=== PATIENT | female | born 1995 | race Caucasian/White ===

== ENCOUNTER 2021-01-30 16:34 | Emergency (ER) | payer OTHER, SELFPAY ==
[2021-01-30 16:36] VITALS: PULSE 75; RESP 20; TEMP 36.4; O2SAT 98
--- NOTE | 2021-01-30 16:38 | DI.RAD.S_ITS ---
PROCEDURE: XR TOE LT MIN 2V INDICATIONS: dropped cutting board on toe TECHNIQUE: 3 views of the 1st toe(s) acquired. COMPARISON: None. FINDINGS: Bones: No fractures or dislocations. No suspicious bony lesions. Soft tissues: No suspicious soft tissue densities. IMPRESSION: No acute osseous abnormality. Dictated by: Virgilio Valdes M.D. on 01/30/2021 at 16:55 Approved by: Virgilio Valdes M.D. on 01/30/2021 at 16:56
--- NOTE | 2021-01-30 17:20 | ED_ITS ---
HPI - Extremity Injury (Lower) General Chief Complaint: Extremity Injury, Lower Stated Complaint: LEFT BIG TOE INJURY Time Seen by Provider: 01/30/21 17:11 Source: patient Mode of arrival: Ambulatory History of Present Illness HPI Narrative: Patient is a 25-year-old female who is here for evaluation of a left big toe injury. She states that she dropped a cutting board on her toe a couple days ago. Since that time she has had discomfort with walking. No prior injury. Review of Systems Musculoskeletal Comments: Left big toe pain Integumentary/Breasts Comments: Bruising under the left big toenail Neurologic Neurologic: Reports system reviewed and no additional complaints, except as documented Hematologic/Lymphatic On Anticoagulants: No Patient History Medical History Healthy adult Social History Smoking Status: Current every day smoker Smoking Status: Current every day smoker Exam Initial Vital Signs Initial Vital Signs: Vital Signs Temperature 97.5 F L 01/30/21 16:36 Pulse Rate 75 01/30/21 16:36 Respiratory Rate 20 01/30/21 16:36 Pulse Oximetry 98 01/30/21 16:36 Const General: cooperative and comfortable Cardio Pulses: dorsalis pedis present on the left Skin General: no rashes or lesions noted Neuro General: patient alert and patient awake Sensory Exam: no sensory deficits noted Extrem Other: Patient does have a left great toe subungual hematoma. In tenderness to palpation over this area. Procedures Nail Trephination Time out: Yes Location (toes): first digit Method of drainage: needle Procedure successful: Yes Patient tolerated procedure: well and no complications Course Orders Ordered: ED Orders 01/30/21 16:38 XR toe LT min 2V Stat Vital Signs Vital signs: Vital Signs - 8 hr 01/30/21 16:36 Temperature 97.5 F L Pulse Rate 75 Respiratory Rate 20 Pulse Oximetry 98 MDM - Extremity Injury (Lower) Imaging Data Extremity x-ray #1: Radiologist's Impression: [address] [address] XRay Report Signed Patient: Kassie Alfaro MR#: [id number] : 1995 Acct:[id number] Age/Sex: 25 / F Date of Service: 01/30/21 Loc: ED Accession Number: [id number] ?? Procedure: XR toe LT min 2V Ordering Provider: Maikel Valle D.O. PROCEDURE:? XR TOE LT MIN 2V ? INDICATIONS:? dropped cutting board on toe ? TECHNIQUE:? 3 views of the 1st toe(s) acquired.? ? COMPARISON:? None. ? FINDINGS:? ? Bones:? No fractures or dislocations.? No suspicious bony lesions.? ? Soft tissues:? No suspicious soft tissue densities.? ? IMPRESSION:? No acute osseous abnormality. ? ? Dictated by: Virgilio Valdes M.D. on 01/30/2021 at 16:55 ? ? Approved by: Virgilio Valdes M.D. on 01/30/2021 at 16:56 MDM Narrative Medical decision making narrative: X-ray did not show any signs of a fracture. She is neurovascularly intact. She does have a left great toe subungual hematoma which was drained here in the ER. She was told that she could potentially lose this toenail because of this. She was given care instructions return precautions. She expressed understanding and agreement. Discharge Plan Departure Patient Disposition: Home Clinical Impression: Subungual hematoma of great toe of left foot Instructions: DI for Subungual Hematoma Activity Restrictions/Additional Instructions: You can walk like normal. Expect some drainage from the small hole that we made in the toenail. There is a good chance that your going to lose your toenail because of this injury. You can take Tylenol/ibuprofen for any discomfort. Return to the emergency department for any new or worsening symptoms
== END 2021-01-30 17:34 | disposition home or self-care (01) ==
PROVIDERS: Emergency Provider Emergency Medicine
DX: S90.212A Contusion of left great toe with damage to nail, initial encounter (principal); W22.8XXA Striking against or struck by other objects, initial encounter
CPT/HCPCS: 11730; 73660; 99283

== ENCOUNTER → 2021-07-25 15:18 | Outpatient (CLI) | payer OTHER, SELFPAY ==
[2021-07-25 15:54] LABS: Add Manual Diff / Slide Review NO; Basophils Absolute Auto 0 /uL (0-100); Basophils Percent Auto 0.3 % (0-2); Eosinophils Absolute Auto 100 /uL (0-450); Eosinophils Percent Auto 0.9 % (2-4); Hematocrit 38.9 % (36-46); Hemoglobin 13.5 g/dL (12.0-16.0); Lymphocytes Absolute Auto 1600 /uL (1100-4500); Lymphocytes Percent Auto 16.1 % (25-40); Mean Corpuscular HGB Conc 34.6 % (30-36); Mean Corpuscular Hemoglobin 28.5 PG (26-34); Mean Corpuscular Volume 82.6 fL (80-100); Monocytes Absolute Auto 600 /uL (0-900); Monocytes Percent Auto 5.9 % (3-14); Neutrophils Absolute Auto 7500 /uL (1500-7000); Neutrophils Percent Auto 76.8 % (50-75); Platelet Count 255 X10^3/uL (150-400); Red Blood Cell Count 4.72 X10^6/uL (4.0-5.2); Red Cell Distribution Width 13.1 % (11.6-14.8); White Blood Cell Count 9.7 X10^3/uL (4.5-11.0)
[2021-07-25 16:24] LABS: Appearance Urine UA CLEAR; Bilirubin Urine UA NEGATIVE (NEGATIVE); Color Urine UA YELLOW; Glucose Urine UA 1+ g/dL (Negative); Ketones Urine UA 1+ (NEGATIVE); Leukocyte Esterase Urine UA NEGATIVE (NEGATIVE); Nitrite Urine UA NEGATIVE (Negative); Occult Blood Urine UA TRACE-INTACT (Negative); Protein Urine UA TRACE (Negative); Specific Gravity Urine UA >=1.030 (1.000-1.035); Urobilinogen Urine UA 0.2 E.U./dL (0.2)
[2021-07-25 17:02] LABS: Hepatitis B Surface Antigen NEGATIVE s/c (NEGATIVE); Rubella Antibody IgG 12.7 IU/mL (>15)
[2021-07-25 17:22] LABS: HIV 1 & 2 Ab/Ag 4th Gen Combo NEGATIVE (NEGATIVE); Hep C Virus Ab w/Reflex Quant NEGATIVE s/c (NEGATIVE)
[2021-07-26 10:51] LABS: RPR Screen Non Reactive (Non Reactive); Varicella IgG Antibody <135 index (Immune >165)
== END ==
PROVIDERS: Referring Provider Family Medicine; Visit Provider Family Medicine
DX: Z34.00 Encounter for supervision of normal first pregnancy, unspecified trimester (principal)
CPT/HCPCS: 36415; 80055; 81003; 86787; 86803; 86850; 86900; 86901; 87086; 87389

== ENCOUNTER → 2021-09-27 12:05 | Outpatient (CLI) | payer OTHER, SELFPAY ==
--- NOTE | 2021-09-27 12:07 | DI.US.S_ITS ---
PROCEDURE: US OB >= 14 WEEKS FETUS INDICATIONS: ANATOMY SCAN OUTSIDE/PRIOR DATING DATA: Last menstrual period (LMP): 05/08/2021. LMP-based estimated date of delivery (YELENA): 02/12/2022. First dating scan (date and location): 09/27/2021. Estimated date of delivery (YELENA) from first dating scan: 02/19/2022. The calculations are made using the ultrasound YELENA of 02/19/2022. TECHNIQUE: Real-time scanning was performed of the fetus, with image documentation and biometric measurements. COMPARISON: None. FINDINGS: General: A single living intrauterine gestation is present. Presentation: Breech Placenta: Placental position is anterior, without previa. Amniotic fluid index: 6.9 cm. Largest pocket 1.9 cm. heart rate: 145 beats per minute. Maternal cervical canal: 5.4 cm long. Normal lower limit is 2.5 cm. biometrics: Biparietal diameter: 19 weeks Head circumference: 19 weeks 5 days Abdominal circumference: 18 weeks 6 days Femur length: 19 weeks 3 days Clinically estimated gestational age: 20 weeks 2 days Composite gestational age from present scan: 19 weeks 2 days Estimated weight and percentile: 277 g Limited anatomic survey. IMPRESSION: 1. Single living IUP with composite gestational age of 19 weeks 2 days corresponding to ultrasound YELENA of 02/19/2022 2. Limited anatomic survey. Follow-up recommended. 3. Amniotic fluid index less than the 5th percentile for age. Follow-up OB ultrasound recommended. We strive to produce accurate, complete, and clear reports of imaging services. To assist us in improving patient care, this report was composed using standard report templates and voice recognition software. Therefore, it may contain abnormal punctuation, insertions and/or omissions. Occasional wrong-word or sound-alike substitutions may occur. Though we review the report and make efforts to correct it, we do recommend that the report be read carefully in proper context to recognize any text inaccuracies. Dictated by: Erik HINOJOSA Interpreted: Virgilio Valdes MD on 09/28/2021 at 13:16 Transcribed by: ALANIS on 09/28/2021 at 13:22 Approved by: Virgilio Valdes M.D. on 09/28/2021 at 15:21
== END ==
PROVIDERS: Referring Provider Family Medicine; Visit Provider Family Medicine
DX: Z36.89 Encounter for other specified antenatal screening (principal); Z3A.19 19 weeks gestation of pregnancy
CPT/HCPCS: 76811

== ENCOUNTER → 2021-10-06 15:16 | Outpatient (CLI) | payer OTHER, SELFPAY ==
[2021-10-09 12:36] LABS: AFP, Serum 124.9 ng/mL (.); Calc Gestational Age Ultrasound (.); Estriol, Free 2.72 ng/mL (.); Inhibin A, Dimeric 109.38 pg/mL (.); Inhibin A, MoM 0.68 (.); Maternal Ethnicity Caucasian (.); Maternal Weight 240 lbs (.); Number of Fetuses No (.); OSBR Risk 1 IN 356 (.); Results Report (.); Test Results *Screen Negative* (.); hCG, MoM 0.85 (.); hCG, Serum 15857 mIU/mL (.)
== END ==
PROVIDERS: PCP Family Medicine; Referring Provider Family Medicine; Visit Provider Family Medicine
DX: Z34.92 Encounter for supervision of normal pregnancy, unspecified, second trimester (principal); Z3A.19 19 weeks gestation of pregnancy
CPT/HCPCS: 36415; 82105; 82677; 84702; 86336

== ENCOUNTER → 2021-10-13 14:02 | Outpatient (CLI) | payer OTHER, SELFPAY ==
--- NOTE | 2021-10-13 14:04 | DI.US.S_ITS ---
PROCEDURE: US OB FOLLOW UP INDICATIONS: PAT; RE-EVALUATE ANATOMY OUTSIDE/PRIOR DATING DATA: Last menstrual period (LMP): 05/08/2021 LMP-based estimated date of delivery (YELENA): 02/12/2022 First dating scan (date and location): 09/27/2021 Estimated date of delivery (YELENA) from first dating scan: 02/19/2022 The calculations are made using the ultrasound YELENA of 02/19/2022 TECHNIQUE: Real-time scanning was performed of the fetus, with image documentation. Endovaginal scanning: Not performed. COMPARISON: [facility], , OB >= 14 WEEKS FETUS, 09/27/2021, 12:47. FINDINGS: General: A single living intrauterine gestation is present. Presentation: Vertex Placenta: Placental position is anterior, without previa. Amniotic fluid index: 12.8 cm, normal range is 5-24 cm. Single deepest vertical pocket is 4.7 cm. heart rate: 137 beats per minute. Maternal cervical canal: 3.6 cm long. Normal lower limit is 2.5 cm. Clinically estimated gestational age: 21 weeks 4 days Other: ventricles, posterior fossa, nuchal fold, face/orbits, nose/lips, facial profile, spine, kidneys, and feet appear normal a period placental cord insertion appears normal. IMPRESSION: 1. Single live intrauterine . 2. Amniotic fluid index is within normal limits measuring 12.8 cm. 3. anatomic survey within normal limits. We strive to produce accurate, complete, and clear reports of imaging services. To assist us in improving patient care, this report was composed using standard report templates and voice recognition software. Therefore, it may contain abnormal punctuation, insertions and/or omissions. Occasional wrong-word or sound-alike substitutions may occur. Though we review the report and make efforts to correct it, we do recommend that the report be read carefully in proper context to recognize any text inaccuracies. Dictated by: Burton Akins M.D. on 10/13/2021 at 15:10 Approved by: Burton Akins M.D. on 10/13/2021 at 15:24
== END ==
PROVIDERS: PCP Family Medicine; Referring Provider Family Medicine; Visit Provider Family Medicine
DX: O41.02X0 Oligohydramnios, second trimester, not applicable or unspecified (principal); Z36.2 Encounter for other antenatal screening follow-up; Z3A.21 21 weeks gestation of pregnancy
CPT/HCPCS: 76816

== ENCOUNTER → 2021-11-17 16:36 | Outpatient (CLI) | payer OTHER, SELFPAY ==
[2021-11-17 17:59] LABS: Hematocrit 35.6 % (36-46); Hemoglobin 12.1 g/dL (12.0-16.0)
[2021-11-17 18:14] LABS: GTT (PREG) 1 Hour PP 50gm Dose 158 mg/dL (76-139)
== END ==
PROVIDERS: PCP Family Medicine; Referring Provider Obstetrics & Gynecology; Visit Provider Obstetrics & Gynecology
DX: Z34.02 Encounter for supervision of normal first pregnancy, second trimester (principal); Z3A.26 26 weeks gestation of pregnancy
CPT/HCPCS: 36415; 82950; 85014; 85018

== ENCOUNTER → 2021-12-05 08:08 | Outpatient (CLI) | payer OTHER, SELFPAY ==
[2021-12-05 10:25] LABS: Glucose Fasting Gestational 66 mg/dL (76-95)
[2021-12-05 10:25] LABS: Glucose 1 Hour Gest 117 mg/dL (76-180)
[2021-12-05 12:01] LABS: Glucose Tol Interp,Gestational INTERPRETATION
[2021-12-05 12:02] LABS: Glucose 2 Hour Gest 134 mg/dL (76-155)
[2021-12-05 13:18] LABS: Glucose 3 Hour Gest 108 mg/dL (76-140)
== END ==
PROVIDERS: PCP Family Medicine; Referring Provider Family Medicine; Visit Provider Family Medicine
DX: R73.9 Hyperglycemia, unspecified (principal)
CPT/HCPCS: 36415; 82951; 82952

== ENCOUNTER 2021-12-12 16:30 | Observation (INO) | payer OTHER, SELFPAY ==
--- NOTE | 2021-12-12 17:19 | DI.US.S_ITS ---
PROCEDURE: US ABDOMEN LIMITED INDICATIONS: RUQ pain TECHNIQUE: Real-time focused scanning was performed of the abdomen, with image documentation. COMPARISON: None. FINDINGS: The liver demonstrates enlarged size. The liver demonstrates generalized moderately increased echogenicity. This decreases ultrasound sensitivity for detection of hepatic masses. The gallbladder is contracted, which limits its evaluation. No findings of gallstones or sludge are seen. The gallbladder wall is not thickened, measuring 3 mm or less. No specific pericholecystic fluid is seen. The sonographic [place] sign is negative. There is no biliary dilatation, the common bile duct measures 4 mm. The pancreas is not well seen. This is a limited study, secondary to patient body habitus and . The measured heart rate is 143 beats per minute. IMPRESSION: Limited study demonstrating a contracted gallbladder, without biliary dilatation. The liver demonstrates increased echogenicity. This finding is nonspecific, yet it is most commonly attributed to fatty infiltration. Dictated by: Franklyn Salamanca M.D. on 12/12/2021 at 18:01 Approved by: Franklyn Salamanca M.D. on 12/12/2021 at 18:03
[2021-12-12 18:30] LABS: Add Manual Diff / Slide Review NO; Basophils Absolute Auto 0 /uL (0-100); Basophils Percent Auto 0.2 % (0-2); Eosinophils Absolute Auto 100 /uL (0-450); Eosinophils Percent Auto 0.8 % (2-4); Hematocrit 32.3 % (36-46); Hemoglobin 11.1 g/dL (12.0-16.0); Lymphocytes Absolute Auto 1900 /uL (1100-4500); Lymphocytes Percent Auto 16.9 % (25-40); Mean Corpuscular HGB Conc 34.3 % (30-36); Mean Corpuscular Hemoglobin 27.8 PG (26-34); Mean Corpuscular Volume 81.1 fL (80-100); Monocytes Absolute Auto 800 /uL (0-900); Monocytes Percent Auto 6.7 % (3-14); Neutrophils Absolute Auto 8700 /uL (1500-7000); Neutrophils Percent Auto 75.4 % (50-75); Platelet Count 226 X10^3/uL (150-400); Red Blood Cell Count 3.98 X10^6/uL (4.0-5.2); Red Cell Distribution Width 13.7 % (11.6-14.8); White Blood Cell Count 11.5 X10^3/uL (4.5-11.0)
[2021-12-12 18:54] LABS: Alanine Aminotransferase 15 IU/L (<35); Albumin 3.1 g/dL (3.5-5.0); Albumin Globulin Ratio 1.1 (1.0-2.8); Alkaline Phosphatase 81 U/L (38-126); Aspartate Aminotransferase 23 IU/L (14-36); Bilirubin Total 0.2 mg/dL (0.2-1.3); Blood Urea Nitrogen 7 mg/dL (7-17); Calcium 8.5 mg/dL (8.4-10.2); Carbon Dioxide 25 mmol/L (22-32); Chloride 104 mmol/L (98-107); Estimated Glomerular Filt Rate > 60 mL/min (>60); Globulin 2.7 g/dL (1.7-4.1); Glucose 92 mg/dL (70-100); HEMOLYSIS < 15 (0-50); Potassium 3.4 mmol/L (3.4-5.1); Sodium 136 mmol/L (137-145); Total Protein 5.8 g/dL (6.3-8.2)
[2021-12-12 19:12] LABS: Appearance Urine UA CLEAR; Bilirubin Urine UA NEGATIVE (NEGATIVE); Color Urine UA YELLOW; Glucose Urine UA NEGATIVE (Negative); Ketones Urine UA NEGATIVE (NEGATIVE); Leukocyte Esterase Urine UA 2+ (NEGATIVE); Nitrite Urine UA NEGATIVE (Negative); Occult Blood Urine UA NEGATIVE (Negative); Protein Urine UA NEGATIVE (Negative); Specific Gravity Urine UA <=1.005 (1.000-1.035); Urobilinogen Urine UA 0.2 E.U./dL (0.2)
[2021-12-12 19:24] LABS: Amorphous Sediment Urine 1+; Bacteria Urine Occasional (0-1); Culture Indicated Urine Specimen Cultured; RBC Urine None Seen (0-5/HPF); Squamous Epithelial Cell Urine 1-5 /HPF (0-5/HPF); WBC Urine 1-5/HPF (0-5/HPF)
== END 2021-12-12 19:35 | disposition home or self-care (01) ==
LOC: LABOR 16:35
PROVIDERS: Obstetrics & Gynecology; Admitting Provider Family Medicine; PCP Family Medicine; Referring Provider Family Medicine; Visit Provider Family Medicine
DX: O26.893 Other specified pregnancy related conditions, third trimester (principal); R10.11 Right upper quadrant pain; Z3A.31 31 weeks gestation of pregnancy
CPT/HCPCS: 36415; 59025; 76705; 80053; 81003; 81015; 85025; 87086; G0378; G0379

== ENCOUNTER → 2022-01-19 13:47 | Outpatient (CLI) | payer OTHER, SELFPAY ==
[2022-01-20 08:51] LABS: Strep Grp B PCR POS for Grp B Strep
== END ==
PROVIDERS: PCP Family Medicine; Visit Provider Family Medicine
DX: Z34.93 Encounter for supervision of normal pregnancy, unspecified, third trimester (principal); Z3A.36 36 weeks gestation of pregnancy
CPT/HCPCS: 87653

== ENCOUNTER 2022-02-12 11:40 | Outpatient (CLI) | payer OTHER, SELFPAY ==
[2022-02-12 12:08] LABS: Add Manual Diff / Slide Review NO; Basophils Absolute Auto 100 /uL (0-100); Basophils Percent Auto 0.8 % (0-2); Eosinophils Absolute Auto 0 /uL (0-450); Eosinophils Percent Auto 0.4 % (2-4); Hemoglobin 10.9 g/dL (12.0-16.0); Lymphocytes Absolute Auto 1500 /uL (1100-4500); Mean Corpuscular HGB Conc 32.8 % (30-36); Mean Corpuscular Hemoglobin 25.7 PG (26-34); Mean Corpuscular Volume 78.3 fL (80-100); Monocytes Absolute Auto 600 /uL (0-900); Monocytes Percent Auto 4.9 % (3-14); Neutrophils Absolute Auto 9200 /uL (1500-7000); Neutrophils Percent Auto 80.9 % (50-75); Platelet Count 209 X10^3/uL (150-400); Red Blood Cell Count 4.22 X10^6/uL (4.0-5.2); Red Cell Distribution Width 13.9 % (11.6-14.8); White Blood Cell Count 11.3 X10^3/uL (4.5-11.0)
[2022-02-12 12:20] LABS: Aspartate Aminotransferase 21 IU/L (14-36); BUN Creatinine Ratio 7.5 (6-22); Blood Urea Nitrogen 4 mg/dL (7-17); Estimated Glomerular Filt Rate > 60 mL/min (>60); Uric Acid 4.3 mg/dL (2.5-6.2)
--- NOTE | 2022-02-12 12:55 | PM.OBTRLD ---
Visit Information Visit Information Date of evaluation: 02/12/22 Primary OB Provider: Elena Boo Reason for Evaluation: Yes non-stress test non-stress test reason: hypertension/pre-eclampsia Comments/Additional reasons for admission: 27 year old at 40 weeks gestation sent from clinic due to elevated BP. She is without CABAN, vision changes, RUQ pain. Notes some edema which is new. Vital Signs Vital Signs: Temperature 35.7? blood pressure 143/73 heart rate 95 149/79 96 126/63 93 129/74 103 127/70 97 128/69 90 [facility] Medical History Anxiety (~2020) Back pain Depression (~2020) Frequent headaches (~2019) Healthy adult Migraines (~2020) Mild acid reflux Shoulder pain (~2020) Wears glasses Surgical History History of wisdom tooth extraction Family History Mother History of Father Mental health problem Substance abuse Grandfather Diabetes mellitus Social History marital status: number of children: 0 household members: spouse and friend(s) lives independently: Yes housing: house pets and animals: No education level: college occupational status: employed ([employer]) current occupational exposures/hazards: Yes (will need note to be out of that area) special zaida needs: No seatbelt use: always water heater temp set < 120 deg: Yes working smoke detector in home: Yes fire extinguisher in home: Yes carbon monox detector in home: Yes firearms in home: Yes firearms unloaded and locked: Yes do you feel safe at home: Yes Smoking Status: Former smoker second hand exposure: No alcohol intake: former substance use type: does not use during the past year weight has: increased > 10 lbs (gained 30 pounds in last year, was not eating well and had back injury) well-balanced diet: rarely or never daily servings fruits/ve-1 caffeine: Yes (aware of limit) Type(s) of exercise: none Objective Labs Result Diagrams: 02/12/22 12:00 02/12/22 12:00 Labs: Laboratory Results - last 24 hr 02/12/22 02/12/22 12:00 12:00 WBC 11.3 H RBC 4.22 Hgb 10.9 L Hct 33.0 L MCV 78.3 L MCH 25.7 L MCHC 32.8 RDW 13.9 Plt Count 209 Neut % (Auto) 80.9 H Lymph % (Auto) 13.0 L [place] % (Auto) 4.9 Eos % (Auto) 0.4 L Baso % (Auto) 0.8 Neut # (Auto) 9200 H Lymph # (Auto) 1500 [place] # (Auto) 600 Eos # (Auto) 0 Baso # (Auto) 100 BUN 4 L Creatinine 0.53 Estimated GFR > 60 BUN/Creatinine Ratio 7.5 Uric Acid 4.3 AST 21 Evaluation Evaluation Baseline heart rate: 130 Variability: Moderate (11-25) monitor accelerations: Present Monitor Decelerations: Absent Category of Tracing: Reactive Diagnosis, Plan/Disposition Final Diagnosis (1) 40 weeks gestation of : Status: Acute Plan/Disposition Plan: 27 year old at 40 weeks gestation. BP initially elevated though came down spontaneously. She is without sx of pre-eclampsia. Labs normal. Will discharge home. Return in 4 days for induction. OB Disposition: home
[2022-02-12 13:01] LABS: Creatinine Urine Random 51.1 mg/dL; Protein (Total) Urine Random 18 mg/dL (0-12); Protein Creatinine Ratio Urine 0.35 GRAM/24H
== END 2022-02-12 13:05 | disposition home or self-care (01) ==
LOC: OB 02-20 14:11
PROVIDERS: PCP Family Medicine; Referring Provider Family Medicine; Visit Provider Family Medicine
DX: O48.0 Post-term pregnancy (principal); O12.03 Gestational edema, third trimester; O26.893 Other specified pregnancy related conditions, third trimester; R03.0 Elevated blood-pressure reading, without diagnosis of hypertension; Z3A.40 40 weeks gestation of pregnancy
CPT/HCPCS: 59025; 59050; 82570; 84156; 84450; 84550; 85025; G0378; G0379

== ENCOUNTER 2022-02-15 19:30 | Inpatient (IN) | payer OTHER, SELFPAY ==
[2022-02-15 20:12] VITALS: BP 127/77
[2022-02-15] MEDS: LACTATED RINGERS 1,000 ML 999 ML IV (20:29)
[2022-02-15 20:37] LABS: Add Manual Diff / Slide Review NO; Basophils Absolute Auto 100 /uL (0-100); Eosinophils Absolute Auto 100 /uL (0-450); Eosinophils Percent Auto 0.5 % (2-4); Hematocrit 33.4 % (36-46); Hemoglobin 10.9 g/dL (12.0-16.0); Lymphocytes Absolute Auto 1800 /uL (1100-4500); Lymphocytes Percent Auto 13.6 % (25-40); Mean Corpuscular HGB Conc 32.7 % (30-36); Mean Corpuscular Volume 79.6 fL (80-100); Monocytes Absolute Auto 900 /uL (0-900); Monocytes Percent Auto 6.9 % (3-14); Neutrophils Absolute Auto 10100 /uL (1500-7000); Platelet Count 252 X10^3/uL (150-400); Red Blood Cell Count 4.19 X10^6/uL (4.0-5.2); Red Cell Distribution Width 14.3 % (11.6-14.8)
[2022-02-15] MEDS: DINOPROSTONE VAG (CERVIDIL) 10 MG VAG (21:28)
[2022-02-15] MEDS: ZOLPIDEM 5 MG TABLET PO (21:38)
[2022-02-15] MEDS: CALCIUM CARBONATE 500 MG TAB 1000 MG PO (21:41)
[2022-02-15 22:46] LABS: COVID19 -Nasal RAPID Negative (Negative)
[2022-02-16] MEDS: ACETAMINOPHEN 325 MG TABLET 650 MG PO (06:19)
--- NOTE | 2022-02-16 08:28 | PM.OBHP.IH.1 ---
OB HPI Date/Time Date of admission: 02/16/22 History of Present Condition Chief complaint: nst YELENA Calculator Estimated Delivery Date Method Current WG Current Estimate 02/12/22 LMP (Uncertain) 40w 4d Other Estimates 02/17/22 Ultrasound #1 39w 6d : 1 Para: 0 Narrative: 27-year-old at 40 weeks and 4 days here for post-dates induction. She received Cervidil overnight and slept little due to cramping and back pain. Denies leaking or bleeding. Baby has been active. She is interested in an epidural eventually. care: good care, initiated at week # (11), number of visits (13) and pounds weight gain (49) Dating criteria OB: LMP confirmed by 1st trimester US Ultrasounds: normal mid trimester US Preadmission Labs Last OB Lab Results: Blood Type O Positive 02/15/22 20: Antibody Screen Negative 02/15/22 20:23 Hematocrit 33.4 % (36-46) L 02/15/22 20:23 Hemoglobin 10.9 g/dL (12.0-16.0) L 02/15/22 20:23 Hepatitis B Surface Antigen Negative s/c (NEGATIVE) 07/25/21 15:22 Hepatitis C Antibody Negative s/c (NEGATIVE) 07/25/21 15:22 Rubella Antibody 12.7 IU/mL (>15) L 07/25/21 15:22 Varicella-Zoster IgG Antibody <135 index (Immune >165) L 07/25/21 15:22 Glucose 1 Hour 158 mg/dL (76-139) H 11/17/21 16:42 Group B Streptococcus (PCR) Pos for grp b strep H 01/19/22 13:47 Evaluation Evaluation Baseline heart rate: 130 Variability: Moderate (11-25) monitor accelerations: Present Monitor Decelerations: Absent Contraction Frequency (minutes): 4 Status: Category l Dilation (cm): 2.5 Effacement (%): 80 Dilation: 1-2 cm Effacement: >/=80% station: -1 Position of cervix: posterior Consistency: soft Rockwell score: 8 PFSH Medical History Anxiety (~2020) Back pain Depression (~2020) Frequent headaches (~2019) Healthy adult Migraines (~2020) Mild acid reflux Shoulder pain (~2020) Wears glasses Surgical History History of wisdom tooth extraction Family History Mother History of Father Mental health problem Substance abuse Grandfather Diabetes mellitus Social History marital status: number of children: 0 household members: spouse and friend(s) lives independently: Yes housing: house pets and animals: No education level: college occupational status: employed ([employer]) current occupational exposures/hazards: Yes (will need note to be out of that area) special zaida needs: No seatbelt use: always water heater temp set < 120 deg: Yes working smoke detector in home: Yes fire extinguisher in home: Yes carbon monox detector in home: Yes firearms in home: Yes firearms unloaded and locked: Yes do you feel safe at home: Yes Smoking Status: Former smoker second hand exposure: No alcohol intake: former substance use type: does not use during the past year weight has: increased > 10 lbs (gained 30 pounds in last year, was not eating well and had back injury) well-balanced diet: rarely or never daily servings fruits/ve-1 caffeine: Yes (aware of limit) Type(s) of exercise: none Meds Home Medications and Allergies Home Medications Medication Instructions Recorded Confirmed Type docusate sodium 100 mg capsule 100 mg PO DAILY 07/12/21 02/09/22 History (Colace) prenat.vits,usman,lxi-tdvh-pkfse 1 tab PO DAILY 07/12/21 02/09/22 History pyridoxine (vitamin B6) 100 mg 100 mg PO QID 07/12/21 02/09/22 History tablet Allergies Allergy/AdvReac Type Severity Reaction Status Date / Time No Known Drug Allergies Allergy Unverified 02/09/22 13:45 Review of Systems Review of Systems ROS: Yes All systems reviewed with the patient and are negative except as otherwise documented OB Exam Narrative Exam Narrative: Temperature 36.6? blood pressure 120/69 heart rate 93 HENMT Head: normal to inspection Mouth: oral mucosae normal Eyes General: appearance normal, both eyes and all related structures Resp Effort & Inspection: normal respiratory effort Auscultation: clear to auscultation bilaterally Cardio Rate: regular rate Rhythm: regular rhythm Extremities Lower extremity: Yes edema (Trace bilaterally) Presentation: vertex Estimated Weight (lbs): 8 Objective Labs Result Diagrams: 02/15/22 20:23 Labs: Laboratory Results - last 24 hr 02/15/22 02/15/22 02/15/22 20:00 20:23 20:23 WBC 13.0 H RBC 4.19 Hgb 10.9 L Hct 33.4 L MCV 79.6 L MCH 26.0 MCHC 32.7 RDW 14.3 Plt Count 252 Neut % (Auto) 78.0 H Lymph % (Auto) 13.6 L [place] % (Auto) 6.9 Eos % (Auto) 0.5 L Baso % (Auto) 1.0 Neut # (Auto) 98512 H Lymph # (Auto) 1800 [place] # (Auto) 900 Eos # (Auto) 100 Baso # (Auto) 100 SARS-CoV-2 (PCR) Negative Blood Type O Positive Antibody Screen Negative Assessment and Plan Assessment and Plan Assessment and Plan narrative: 27-year-old at 40 weeks and 4 days gestation status post Cervidil overnight. Cervix is favorable this morning with a Rockwell score of 8. She is GBS positive. Plan Patient may eat breakfast in shower then will start Pitocin per protocol Begin GBS prophylaxis upon active labor Anticipate
[2022-02-16] MEDS: FENT 2MCG/ML BUPIV 0.125% EPI 200 MCG/100 ML PLAST..BAG 8 MCG EPIDURAL ×2 (11:00→16:49)
[2022-02-16] MEDS: PENICILLIN G POTASSIUM 5,000,000 UNIT in DEXTROSE 5% IN WATER 250 ML 250 UNIT IV (11:43)
[2022-02-16] MEDS: LACTATED RINGERS 1,000 ML 1000 ML IV (11:44)
[2022-02-16] MEDS: OXYTOCIN PREMIX 30 UNIT/500 ML PLAST..BAG IV (13:41)
[2022-02-16] MEDS: PENICILLIN G POTASSIUM 3,000,000 UNIT/50 ML FROZ.PIGGY 100 UNIT IV ×2 (15:05→18:48)
--- NOTE | 2022-02-16 15:14 | PM.OBPNLAB ---
Date/Time Date Patient Seen: 02/16/22 Time Patient Seen: 15:14 Pain Control Pain control: tolerating well and epidural Comments: She can feel contractions but not painfully. Unsure if she ruptured. Pelvic Exam Dilation (cm): 9 Effacement (%): 100 station: 0 Amniotic membrane status: Ruptured Contractions Monitor mode: External Pitocin rate (mU/min): 2 Contraction frequency (min): 4 Status status: Category ll Heart Rate Baseline: 140 Monitor Accelerations: Present Monitor Decelerations: Early and Variable Monitor Variability: Moderate Assessment and Plan Assessment: active labor Plan: continuous present management Comments: 27 year old at 40+4 weeks undergoing induction. Progressing well with minimal pitocin. Unknown ROM but suspect sometime in the last two hours. There are intermittent variable and early decelerations with good return to baseline and moderate variability. Will recheck SVE in one hour or when patient feeling rectal pressure. Anticipate .
--- NOTE | 2022-02-16 16:40 | PM.AN.REGBLK ---
Regional Block Pre-procedure PMH/ROS narrative: at 40+4 for post dates induction. no complications. ASA Class: III (BMI 42) Labs: Hct 33.4 % (36-46) L 02/15/22 20:23 Plt Count 252 X10^3/uL (150-400) 02/15/22 20:23 Medications: Current Medications Generic Name Dose Route Start Last Admin Trade Name Freq PRN Reason Stop Dose Admin Acetaminophen 650 mg 02/16/22 05:50 02/16/22 06:19 Acetaminophen 325 Mg Tablet PO 650 mg Q4H PRN Administration Fever/Mild Pain (1-3) Calcium Carbonate 1,000 mg 02/15/22 19:37 02/15/22 21:41 Calcium Carbonate 500 Mg Tab PO 1,000 mg Q2HR PRN Administration Dyspepsia Carboprost Tromethamine 250 mcg 02/15/22 19:37 Carboprost 250 Mcg/Ml Ampul IM Q90M PRN Bleeding Diphenhydramine HCl 25 mg 02/16/22 10:56 Diphenhydramine 50 Mg/Ml Vial IV Q10M PRN Pruritis Ephedrine Sulfate 5 mg 02/16/22 10:56 Ephedrine 50 Mg/Ml Vial IV Q5M PRN Blood pressure decrease more than 20% of baseline. Fentanyl 50 mcg 02/15/22 19:37 Fentanyl 100 Mcg/2 Ml Inj IV Q1H PRN Pain, Moderate (4-6) Lactated Ringer's 1,000 mls @ 100 mls/hr 02/15/22 19:45 02/15/22 20:29 Lactated Ringers IV 999 mls/hr CONT BRADFORD Administration Oxytocin/Lactated Ringer's 30 unit in 500 mls @ 200 mls/hr 02/15/22 19:37 Oxytocin Premix IV CONT PRN Bleeding Protocol Oxytocin/Lactated Ringer's 30 unit in 500 mls @ 1 mls/hr 02/15/22 19:45 02/16/22 13:41 Oxytocin Premix IV 1 milliunit/min TITRATE BRADFORD 1 mls/hr Administration Protocol 1 MILLIUNIT/MIN Tranexamic Acid 1,000 mg/ 100 mls @ 200 mls/hr 02/15/22 19:37 Sodium Chloride IV NOW PRN Bleeding FENT 2MCG/ML BUPIV 0.125% EPI 200 mcg in 100 mls @ 6 mls/hr 02/16/22 11:00 Fentanyl/Bupiv/Ns 2mcg/Ml - 0.125% EPIDURAL CONT BRADFORD Penicillin G Potassium 3,000,000 unit in 50 mls @ 100 mls/hr 02/16/22 15:00 02/16/22 15:05 Penicillin G Potassium IV 100 mls/hr Q4H BRADFORD Administration Methylergonovine Maleate 0.2 mg 02/15/22 19:37 Methylergonovine 0.2 Mg/Ml Vial IM NOW PRN Bleeding Methylergonovine Maleate 0.2 mg 02/15/22 19:37 Methylergonovine 0.2 Mg Tablet PO Q6HR PRN Heavy Bleeding Misoprostol 1,000 mcg 02/15/22 19:37 Misoprostol 200 Mcg Tablet MI NOW PRN Bleeding Misoprostol 800 mcg 02/15/22 19:37 Misoprostol 200 Mcg Tablet MI NOW PRN Bleeding Misoprostol 400 mcg 02/15/22 19:37 Misoprostol 200 Mcg Tablet SL NOW PRN Bleeding Nalbuphine HCl 2.5 mg 02/16/22 10:56 Nalbuphine 20 Mg/Ml Ampul IV Q10M PRN Pruritis Naloxone HCl 0.2 mg 02/15/22 19:37 Naloxone 0.4 Mg/Ml Vial IV Q2MIN PRN Opiate Reversal Ondansetron HCl 4 mg 02/15/22 19:37 Ondansetron 4 Mg/2 Ml Inj IV Q4HR PRN Nausea And Vomiting Oxytocin 10 unit 02/15/22 19:37 Oxytocin 10 Unit/Ml Vial IM NOW PRN Bleeding Zolpidem Tartrate 5 mg 02/15/22 19:37 02/15/22 21:38 Zolpidem 5 Mg Tablet PO 5 mg BEDTIME PRN Administration Sleep Allergies: Allergies Allergy/AdvReac Type Severity Reaction Status Date / Time No Known Drug Allergies Allergy Unverified 02/09/22 13:45 Procedure Insertion date: 02/16/22 Insertion time: 11:00 Prep/Local: betadine x3 and 1% lidocaine Interspace: L3-4 Patient position: sitting Needle: 18 gauge [place] (CSE: 27g [place]enc[place] through [place], clear CSF, 2.5mg MPF bupiv) Loss of resistance with: saline TULIO at (cm): 6 Catheter placed at SKIN (cm): 12 Catheter in SPACE (cm): 6 Insertion: No CSF, No Blood, No Paresthesia with insertion, No Paresthesia with injection and No Test dose reaction Initial Medications TEST DOSE time: 11:03 TEST DOSE: 1.5% lidocaine with epinephrine 1:200k (mL): 3 BOLUS DOSE time: 11:11 BOLUS DOSE (mL): 4 BOLUS DOSE med: other (infusate) Infusion INFUSION: 0.125% bupivacaine and with fentanyl 2 mcg/mL Initial rate (mL/hr): 8 Post-procedure Anesthesia time START: 10:55 Anesthesia time END: 20:15 Post-procedure Anesthesia Assessment: Yes CV function: HR/BP stable, Yes Resp function: RR/sat/airway adequate, Yes Mental status appropriate and No Anesthesia complications
--- NOTE | 2022-02-16 17:03 | PM.OBPNLAB ---
Date/Time Date Patient Seen: 02/16/22 Time Patient Seen: 17:03 Pain Control Pain control: epidural Pelvic Exam Dilation (cm): 10 Effacement (%): 100 station: +1 Amniotic membrane status: Ruptured Contractions Monitor mode: External Pitocin rate (mU/min): 2 Contraction frequency (min): 4 Contraction pattern: Regular Status status: Category l Heart Rate Baseline: 140 Monitor Accelerations: Present Monitor Decelerations: Early Monitor Variability: Moderate Assessment and Plan Assessment: active labor Plan: continuous present management Comments: Patient is now complete and +1 but not yet feeling rectal pressure. EFM category 1 so will labor down up to an hour or until she feels rectal pressure.
[2022-02-16] MEDS: LACTATED RINGERS 1,000 ML 999 ML IV (17:43)
[2022-02-16] MEDS: OXYTOCIN PREMIX 30 UNIT/500 ML PLAST..BAG 200 UNIT IV (20:12)
--- NOTE | 2022-02-16 20:32 | PM.OBPRVD ---
Labor & Delivery Delivery date: 02/16/22 Cervical ripening method: per Cervidil protocol Induction method: per pitocin protocol Delivery monitor: external FHT Route of delivery: L&D Laceration Description: Perineal - 1st Degree and Labial (Bilateral, bleeding on the left) Delivery repair: vicryl Estimated blood loss (mL): 250 Anesthesia Type: Epidural Narrative: Patient is a 27-year-old at 40 weeks and 4 days gestation who gave on 02/16/22 at 8:05 p.m.. Hospital problems: Forty weeks of GBS positive Epidural analgesia STAGE I: Labor Patient received Cervidil overnight the night of 02/15/22. The following morning she progressed into labor spontaneously and went on to receive an epidural. After epidural placement, contractions space so she was started on minimal Pitocin. EFM category 1 and 2 throughout stage I due to intermittent variable decelerations. Unclear rupture of membranes though best guess was around 2:00 p.m.. She received 3 doses of penicillin for GBS prophylaxis. STAGE II: Delivery Patient was complete and pushed for 2 hours. Meconium-stained fluid was noted during pushing. EFM category 2 due to variable and late decelerations pushing. She went on to deliver a vigorous male infant at 8:05 p.m.. was vertex and ALLYN. There was a nuchal cord which was reduced followed by delivery of the . He was immediately placed on mother's abdomen and dried and stimulated. Apgars were 8 and 9. No resuscitation of the required and he remained with mother. STAGE III: Placenta/Cord Placenta delivered at 8:12 p.m. after active management and appeared intact with a three-vessel cord. Pitocin bolus given via the IV. Fundus firm. She was found to have bilateral labial lacerations, both quite superficial but with bleeding on the left. The left labial laceration was repaired with 3-0 Vicryl in the usual fashion with good hemostasis. There was also a very superficial first-degree perineal laceration which was not repaired. EBL: 250 mL. Needle and sponge counts were correct. The vagina was inspected and no items were left in situ. Patient was doing well with Dain, her and at bedside. [place] Baby 1: gender: Male Presentation: vertex Position: Right Occiput Anterior Placenta delivery description: Spontaneous Cord Vessel Description: 3 Vessels and Nuchal Cord (x1) score (1 min): 8 score (5 min): 9 weight: 7 lb 8.496 oz Plan for aftercare: Routine care
[2022-02-16] MEDS: IBUPROFEN 600 MG TABLET PO (22:48)
[2022-02-16] MEDS: DERMOPLAST SPRAY 20% 60 ML 1 SPRAY TOP (22:49)
[2022-02-17] MEDS: IBUPROFEN 600 MG TABLET PO ×4 (05:05→23:31)
[2022-02-17] MEDS: ACETAMINOPHEN 325 MG TABLET 650 MG PO ×4 (05:06→23:31)
[2022-02-17] MEDS: PRENATAL VIT,CALC/IRON/FOLIC 1 TABLET 1 TAB PO (09:12)
[2022-02-17] MEDS: DOCUSATE 100 MG CAPSULE PO (09:12)
--- NOTE | 2022-02-17 09:39 | P.PNOB_ITS ---
Subjective - OB Subjective Patient comments: no complaints and tolerating diet [place] baby status: doing well feeding status: exclusively breast feeding Narrative: Patient denies complaints. She is ambulating and voiding since epidural removed. Bleeding is moderate and pain controlled. with a nipple shield and looking forward to more support. Date Patient Seen: 02/17/22 Time Patient Seen: 08:45 Exam Vital Signs (past 8 hours): Temperature 90 blood pressure 125/72 respirations 18 Narrative Exam Narrative: General: Awake and alert, no acute distress. HEENT: NCAT, EOMI, moist oral mucosa CV: Regular rate and rhythm, no murmurs, rubs or gallops Lungs: CTAB, no wheezes, rales, or rhonchi Abdomen: Soft, nontender; bowel tones active; uterus firm 1 cm below umbilicus Extremities: Warm, no edema Objective Labs Result Diagrams: 02/15/22 20:23 Assessment & Plan Assessment and Plan (1) (spontaneous vaginal delivery): Status: Acute (2) 40 weeks gestation of : Status: Acute Plan day: 1 plan OB: routine care Comments: Anticipate discharge home tomorrow. Time Spent With Patient Time: Total time spent is greater than 50% in coordination of care (as documented) at patient's floor/unit and/or counseling patient: Time with patient: less than 15 minutes
[2022-02-17 10:06] LABS: Hematocrit 28.6 % (36-46); Hemoglobin 9.4 g/dL (12.0-16.0)
[2022-02-18] MEDS: IBUPROFEN 600 MG TABLET PO (07:31)
[2022-02-18] MEDS: ACETAMINOPHEN 325 MG TABLET 650 MG PO (07:32)
[2022-02-18] MEDS: PRENATAL VIT,CALC/IRON/FOLIC 1 TABLET 1 TAB PO (09:05)
[2022-02-18] MEDS: DOCUSATE 100 MG CAPSULE PO (09:05)
--- NOTE | 2022-02-18 09:33 | P.DS_ITS ---
Discharge Providers Provider Date of admission: 02/15/22 19:30 Discharge Date: 02/18/22 Primary care physician: Karla Jade MD Consults: 02/17/22 20:33 Consult to Teacher Of [employer] Routine Comment: Discharge provider: Elena Boo DO Summary Hospital Course Date Patient Seen: 02/18/22 Time Patient Seen: 09:30 Diagnoses: 40 weeks of Spontaneous vaginal delivery GBS positive Hospital Course: 27-year-old G1 now P1 after spontaneous vaginal delivery at 40 weeks and 4 days gestation. She was brought in for induction and progressed into spontaneous labor after Cervidil. She went on to receive an epidural. Cont ractions spaced out so she was given minimal Pitocin with good progress. There was meconium stained fluid. She went on to deliver a vigorous male infant. She sustained bilateral labial lacerations, 1 of which was repaired for hemostasis. course uncomplicated. She had a couple mildly elevated blood pressures but was without signs or symptoms preeclampsia.. Labs were reassuring against preeclampsia. is going well without concerns in the . She is ambulating, voiding and stooling. Pain well controlled with ibuprofen. Vaginal bleeding is light to moderate. Advised patient to call for fevers, severe pain or bleeding through more than a pad an hour. Follow-up in 6 weeks or sooner if needed. She will also be seen when she comes in with her baby. Peripartum Data Infant Delivery Method: Natural Vaginal Laceration Description: Labial (Bilateral) complications: none [place] 1: Gender: Male Disposition of : home Discharge Diagnosis (1) (spontaneous vaginal delivery): Status: Acute (2) 40 weeks gestation of : Status: Acute Time Spent with Patient Time attestation: Total time spent providing and/or coordinating discharge services: Objective Labs Result Diagrams: 02/18/22 09:50 02/18/22 09:50 Labs: Laboratory Results - last 24 hr 02/17/22 07:32 Hgb 9.4 L Hct 28.6 L Exam Vital Signs (past 8 hours): Temperature 98.0 Blood pressure 130/81 heart rate 89 respirations 16 Narrative Exam Narrative: General: Awake and alert, no acute distress HEENT: NCAT, EOMI, moist oral mucosa CV: Regular rate and rhythm, no murmurs, rubs or gallops Lungs: CTAB, no wheezes, rales, or rhonchi Abdomen: Soft, nontender; bowel tones active; uterus firm 1 cm below umbilicus Extremities: Warm, trace edema bilaterally Discharge Plan Discharge Plan Patient Disposition: Home Discharge orders & Medications Prescriptions: New docusate sodium 100 mg Capsule 100 mg PO DAILY Qty: 30 0RF ibuprofen 600 mg Tablet 600 mg PO Q6HR PRN (Reason: Pain, Mild (1-3)) Qty: 30 0RF Continued prenat.vits,usman,[id number] Tablet 1 tab PO DAILY Discontinued pyridoxine (vitamin B6) 100 mg tablet 100 mg PO QID docusate sodium [Colace] 100 mg capsule 100 mg PO DAILY Follow up/Referrals: Elena Boo DO [Physician] - 6 Weeks (Please call the clinic on Saturday, February 19 to schedule a 6 week follow-up appointment with Dr. Boo. ) Karla Jade MD [Primary Care Provider] - Diet/Activity/Treatments Diet: Diet as Tolerated Skin/Wound/Dressing Care Report to your healthcare provider any signs of infection, such as:: chills, fever, night sweats, increased pain, unusual drainage and unusual redness Visit Report/Discharge Packet Stand Alone Forms: Discharge: Care Visit Report Forms: Patient Portal/API, Stroke Signs & Symptoms Discharge Data Primary Care Provider: Karla Jade Attending Provider: Elena Boo Admit Date/Time: 02/15/22 19:30
[2022-02-18 09:48] VITALS: BP 130/81; PULSE 89; RESP 15; TEMP 36.7
[2022-02-18 10:02] LABS: Add Manual Diff / Slide Review NO; Basophils Absolute Auto 0 /uL (0-100); Basophils Percent Auto 0.4 % (0-2); Eosinophils Absolute Auto 100 /uL (0-450); Eosinophils Percent Auto 1.2 % (2-4); Hematocrit 28.6 % (36-46); Hemoglobin 9.6 g/dL (12.0-16.0); Lymphocytes Absolute Auto 1600 /uL (1100-4500); Lymphocytes Percent Auto 14.6 % (25-40); Mean Corpuscular HGB Conc 33.6 % (30-36); Mean Corpuscular Hemoglobin 26.4 PG (26-34); Mean Corpuscular Volume 78.5 fL (80-100); Monocytes Absolute Auto 900 /uL (0-900); Monocytes Percent Auto 7.9 % (3-14); Neutrophils Absolute Auto 8200 /uL (1500-7000); Neutrophils Percent Auto 75.9 % (50-75); Platelet Count 190 X10^3/uL (150-400); Red Blood Cell Count 3.64 X10^6/uL (4.0-5.2); Red Cell Distribution Width 14.2 % (11.6-14.8); White Blood Cell Count 10.8 X10^3/uL (4.5-11.0)
[2022-02-18 10:15] LABS: BUN Creatinine Ratio 7.5 (6-22); Blood Urea Nitrogen 5 mg/dL (7-17); Carbon Dioxide 22 mmol/L (22-32); Chloride 106 mmol/L (98-107); Estimated Glomerular Filt Rate > 60 mL/min (>60); Potassium 3.4 mmol/L (3.4-5.1); Sodium 137 mmol/L (137-145)
[2022-02-18 10:16] LABS: Alanine Aminotransferase 14 IU/L (<35); Albumin 2.8 g/dL (3.5-5.0); Alkaline Phosphatase 94 U/L (38-126); Aspartate Aminotransferase 24 IU/L (14-36); Bilirubin Total 0.1 mg/dL (0.2-1.3); Globulin 2.7 g/dL (1.7-4.1); Glucose 76 mg/dL (70-100); HEMOLYSIS < 15 (0-50); Total Protein 5.5 g/dL (6.3-8.2)
== END 2022-02-18 12:10 | disposition home or self-care (01) | DRG 807 ==
PROVIDERS: Admitting Provider Family Medicine; PCP Family Medicine; Referring Provider Family Medicine; Visit Provider Family Medicine
DX: O99.824 Streptococcus B carrier state complicating childbirth (principal); Z37.0 Single live birth; Z3A.40 40 weeks gestation of pregnancy; O76 Abnormality in fetal heart rate and rhythm complicating labor and delivery; O77.0 Labor and delivery complicated by meconium in amniotic fluid; O70.0 First degree perineal laceration during delivery; Z20.822 Contact with and (suspected) exposure to COVID-19
CPT/HCPCS: 01967; 36415; 59050; 59400; 80053; 85014; 85018; 85025; 86850; 86900; 86901; 87635; C9803; G0378; G0379; J2540; J2590